=== PATIENT | female | born 1940 | race Caucasian/White ===

== ENCOUNTER → 2017-12-16 | Outpatient (CLI) | payer OTHER ==
[~2017-12-16] VITALS: Ht 167.6 cm; Wt 79.4 kg
[~2017-12-16] MED LIST: ALTACE10 MG PO; CARDIZEM CD240 MG PO; CENTRUM SILVER1 EAC4 PO; HYDROCHLOROTHIA25 MG PO
== END | disposition home or self-care (01) ==
LOC: AMB 12:30
DX: Z12.11 Encounter for screening for malignant neoplasm of colon (principal); Z86.010 Personal history of colon polyps; D12.2 Benign neoplasm of ascending colon; K63.5 Polyp of colon; K57.30 Diverticulosis of large intestine without perforation or abscess without bleeding; I10 Essential (primary) hypertension
CPT/HCPCS: 88305; 93005